=== PATIENT | female | born 1955 | race Caucasian/White ===

== ENCOUNTER 2017-04-28 19:41 | Emergency (ER) | payer OTHER ==
[~2017-04-28] VITALS: Ht 154.9 cm; Wt 72.5 kg
[~2017-04-28 19:41] MED LIST: A-4MIS; CYCL10TA PO; IBUP-232 PO; IBUP600T26 PO; NICO7DIS5 T-DERMAL; RANI150C PO; TAMS0.4C4 PO; VALA500T PO; WRIST SPLINT/CO1 MI1; WRIST SPLINT/CO1 MIS; ZOCO40TA PO; ZOSTINJ SQ
[2017-04-28 19:54] VITALS: BP 133/63; PULSE 93; RESP 18; TEMP 98.4; O2SAT 96
[2017-04-28] MEDS ORDERED: VITA1000 PO (20:10)
[2017-04-28] MEDS ORDERED: IBUPROFEN 600 MG TAB PO ONE (20:45)
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
== END 2017-04-28 21:45 | disposition home or self-care (01) ==
LOC: PHEFT 19:41
DX: S80.02XA Contusion of left knee, initial encounter (principal); S20.211A Contusion of right front wall of thorax, initial encounter; E78.00 Pure hypercholesterolemia, unspecified; V43.52XA Car driver injured in collision with other type car in traffic accident, initial encounter
CPT/HCPCS: 71101; 73564; 99284